=== PATIENT | female | born 1975 ===

== ENCOUNTER 2020-08-16 10:45 | Inpatient (IN) | payer OTHER ==
[~2020-08-16] VITALS: Ht 160 cm; Wt 47.6 kg
[2020-08-16] MEDS ORDERED: SYNTHROID137 MCG (13:34)
[2020-08-23] MEDS ORDERED: PEPCID AC20 MG PO (16:50)
[2020-08-23] MEDS ORDERED: ULTRAM50 MG PO (16:50)
[2020-08-23] MEDS ORDERED: CARAFATE1 GM/10 ML PO (16:50)
[2020-08-23] MEDS ORDERED: SIMETHICONE80 MG PO (16:50)
== END 2020-08-23 17:15 | disposition home or self-care (01) | DRG 328 ==
LOC: SURH 08-22 05:30 → O/R 08-22 05:30 → OB/GYN 08-22 10:45 → SURH 08-22 11:35
PROVIDERS: ADMIT Surgery; ATTEND Surgery
PROC: 0BUT4JZ Supplement Diaphragm with Synthetic Substitute, Percutaneous Endoscopic Approach (ICD-10-PCS; principal; 2020-08-22 07:00)
PROC: 0WQF4ZZ Repair Abdominal Wall, Percutaneous Endoscopic Approach (ICD-10-PCS; 2020-08-22 07:00)
DX: K44.9 Diaphragmatic hernia without obstruction or gangrene (principal); K42.9 Umbilical hernia without obstruction or gangrene; K21.9 Gastro-esophageal reflux disease without esophagitis